=== PATIENT | female | born 1995 | race Caucasian/White ===

== ENCOUNTER 2017-06-21 10:22 | Emergency (ER) | payer OTHER, SELFPAY ==
[2017-06-21] MEDS ORDERED: Ondansetron HCl/PF 4 MG/2 ML Vial ONE (12:32)
== END 2017-06-21 13:26 | disposition home or self-care (01) ==
LOC: ERS 10:22
DX: J11.1 Influenza due to unidentified influenza virus with other respiratory manifestations (principal); F41.9 Anxiety disorder, unspecified; F32.9 Major depressive disorder, single episode, unspecified
CPT/HCPCS: 96361; 96374; 99283; J2405

== ENCOUNTER 2018-01-29 20:39 | Emergency (ER) | payer SELFPAY ==
[2018-01-29 21:21] LABS: Bilirubin Negative (Negative); Blood, Urine Negative (Negative); Clarity CLEAR (Clear); Glucose, Urine (Dipstick) Negative (Negative); Leukocyte Negative (Negative); Nitrite Negative (Negative); Protein, Urine (Dipstick) Negative (Neg-Trace); Specific Gravity, Urine 1.006 (1.002-1.036); Urobilinogen 0.2 mg/dL (0.2-1.0)
[2018-01-29 22:00] LABS: #Basophils 0.1 thou/uL (0.0-0.2); #Eosinphils 0.3 thou/uL (0.0-0.7); #Lymphocytes 2.7 thou/uL (1.20-3.40); #Monocytes 0.5 thou/uL (0.11-0.59); #Neutrophils 4.7 thou/uL (1.40-6.50); %Basophils 0.8 % (0.0-1.0); %Eosinophils 3.3 % (0.0-10.0); %Lymphocytes 32.5 % (21.0-51.0); %Monocytes 6.3 % (0.0-10.0); %Neutrophils 57.1 % (42.0-75.0); Hemoglobin 12.7 g/dL (12.0-16.0); Mean Corpuscular HGB CONC 33.4 g/dL (32.0-36.0); Mean Corpuscular Hemoglobin 27.1 pg (27.0-31.0); Mean Corpuscular Volume 81.3 fL (78.0-98.0); Mean Platelet Volume 8.4 fL (7.4-10.4); Platelet Count 256 thou/uL (130-400); RBC Distribution Width 16.3 % (11.5-14.5); Red Blood Cell (RBC) Count 4.68 mill/uL (4.20-5.40); White Blood Cell (WBC) Count 8.3 thou/uL (4.8-10.8)
[2018-01-29 22:14] LABS: Anion Gap 12 mmol/L (10-20); BUN (Urea Nitrogen) 7 mg/dL (7.0-18.7); Calc. Creatinine Clearance 0 mL/min (70-130); Calcium 9.5 mg/dL (7.8-10.44); Carbon Dioxide 25 mmol/L (22-29); Chloride 105 mmol/L (98-107); Estimated GFR-MDRD Greater than 90; Glucose 82 mg/dL (70-105); Potassium 3.6 mmol/L (3.5-5.1); Sodium 138 mmol/L (136-145)
--- NOTE | 2018-01-29 22:42 | ULT ---
TRANSVAGINAL PELVIC ULTRASOUND: HISTORY: Bleeding. COMPARISON: None. TECHNIQUE: Real-time, vo-scale, color, and spectral analysis of the pelvis was performed, transvaginal approac h only. FINDINGS: A right ovarian corpus luteum is present. There is a small left ovarian cyst. There is active flow to both ovaries. There is trace free fluid. No intrauterine . Endometrial thickness is 1.4 cm. The uterus measures 7.3 x 3.5 x 5.2 cm. IMPRESSION: 1. No intrauterine . 2. Likely hemorrhage within the endometrial cavity. POS: [facility]
[2018-02-01 00:07] LABS: Chlamydia by PCR Not Detected (NotDetected); GC by PCR Not Detected (NotDetected)
== END 2018-01-29 22:30 | disposition home or self-care (01) ==
LOC: ERS 20:39
DX: O20.8 Other hemorrhage in early pregnancy (principal); O99.341 Other mental disorders complicating pregnancy, first trimester; F41.9 Anxiety disorder, unspecified; F32.9 Major depressive disorder, single episode, unspecified; Z3A.01 Less than 8 weeks gestation of pregnancy
CPT/HCPCS: 36415; 76856; 80048; 81003; 84702; 85025; 86900; 86901; 87480; 87491; 87510; 87591; 87660

== ENCOUNTER 2018-02-26 15:20 | Emergency (ER) | payer SELFPAY ==
[2018-02-26 15:56] LABS: Bilirubin Negative (Negative); Blood, Urine Negative (Negative); Clarity CLEAR (Clear); Glucose, Urine (Dipstick) Negative (Negative); Leukocyte Trace (Negative); Nitrite Negative (Negative); Protein, Urine (Dipstick) Negative (Neg-Trace); Specific Gravity, Urine 1.008 (1.002-1.036); Urobilinogen 0.2 mg/dL (0.2-1.0); pH, Urine 6.5 (5.0-9.0)
[2018-02-26 15:58] LABS: Bacteria/HPF None Seen HPF (None Seen); Hyaline Casts/LPF 0-3 HYALINE CAST LPF (0-3 Hyaline); Pathc Cast-AUWi Flag 0.43 (0-2.49); Squamous Epithelial 0-3 HPF (0-3); WBC/HPF 0-3 HPF (0-3)
[2018-02-26 16:28] LABS: #Basophils 0.1 thou/uL (0.0-0.2); #Eosinphils 0.2 thou/uL (0.0-0.7); #Lymphocytes 2.2 thou/uL (1.20-3.40); #Monocytes 0.5 thou/uL (0.11-0.59); #Neutrophils 3.5 thou/uL (1.40-6.50); %Basophils 0.9 % (0.0-1.0); %Eosinophils 3.1 % (0.0-10.0); %Lymphocytes 33.8 % (21.0-51.0); %Neutrophils 54.3 % (42.0-75.0); Hemoglobin 12.5 g/dL (12.0-16.0); Mean Corpuscular Hemoglobin 27.9 pg (27.0-31.0); Mean Corpuscular Volume 84.5 fL (78.0-98.0); Mean Platelet Volume 8.5 fL (7.4-10.4); Platelet Count 243 thou/uL (130-400); RBC Distribution Width 15.4 % (11.5-14.5); White Blood Cell (WBC) Count 6.5 thou/uL (4.8-10.8)
[2018-02-26 16:33] LABS: BHCG - Serum POSITIVE (NEGATIVE); Pregs Control Background? CLEAR/WHITE (CLR/WHITE); Pregs Control Bar Appear? YES (CONTROL BAR)
[2018-02-26 16:48] LABS: ALT (SGPT) 13 U/L (8-55); AST (SGOT) 21 U/L (5-34); Albumin 4.1 g/dL (3.5-5.0); Alkaline Phosphatase 45 U/L (40-150); Anion Gap 12 mmol/L (10-20); BUN (Urea Nitrogen) 6 mg/dL (7.0-18.7); Bilirubin, Total 0.2 mg/dL (0.2-1.2); Calc. Creatinine Clearance 0 mL/min (70-130); Calcium 9.2 mg/dL (7.8-10.44); Carbon Dioxide 22 mmol/L (22-29); Chloride 107 mmol/L (98-107); Estimated GFR-MDRD Greater than 90; Globulin 3.4 g/dL (2.4-3.5); Glucose 87 mg/dL (70-105); Potassium 3.5 mmol/L (3.5-5.1); Protein, Total 7.5 g/dL (6.0-8.3); Sodium 137 mmol/L (136-145)
--- NOTE | 2018-02-26 18:45 | ULT ---
PELVIC ULTRASOUND: History: Positive test. Pelvic cramping and spotting. FINDINGS: Real-time imaging of the pelvis was performed transabdominally as well as an endovaginal probe. It sh ows a uterus which is 7.9 cm in length. The endometrium is mildly thickened and heterogeneous in appe arance. No intrauterine gestational sac is identified. Complex cyst is seen involving the right adnexa measuring 1.6 cm. This does not have the appearance o f an ectopic. The left ovary is normal in appearance. Doppler evaluation with spectral analysis: Normal flow is shown to the adnexa. IMPRESSION: No definite signs of an intrauterine ectopic . There is a complex cyst involving the right o vary. I strongly favor this being a cyst rather than an ectopic. Follow up ultrasound would be recomm ended based on clinical findings. POS: [facility]
[2018-03-01 01:40] LABS: Chlamydia by PCR Not Detected (NotDetected); GC by PCR Not Detected (NotDetected)
== END 2018-02-26 17:59 | disposition home or self-care (01) ==
LOC: ERS 15:20
DX: O20.0 Threatened abortion (principal); O99.611 Diseases of the digestive system complicating pregnancy, first trimester; O99.341 Other mental disorders complicating pregnancy, first trimester; F41.9 Anxiety disorder, unspecified; F32.9 Major depressive disorder, single episode, unspecified; O99.011 Anemia complicating pregnancy, first trimester
CPT/HCPCS: 36415; 76856; 80053; 81003; 81015; 84702; 84703; 85025; 86900; 86901; 87480; 87491; 87510; 87591; 87660

== ENCOUNTER 2018-02-28 07:30 | Emergency (ER) | payer SELFPAY ==
--- NOTE | 2018-02-28 10:41 | ULT ---
ULTRASOUND PELVIC TRANSVAGINAL: HISTORY: Evaluate for ectopic . Pelvic pain. COMPARISON: Ultrasound 02/26/2018 and 01/29/2018. FINDINGS: The uterus measures 6.7 x 3.7 x 5.3 cm. Endometrial thickness 2.4 cm. The right ovary measures 3 x 3 x 3.2 cm with a 2.1 cm cyst. There is some peripheral hypervascular flow in the cyst. The left ov arlyn measures 2.3 x 1.3 x 1.1 cm with adequate vascular flow. Small volume free fluid. IMPRESSION: Findings suggesting corpus luteal cyst in the right ovary. No evidence of intrauterine . T he differential could also include a failed ectopic , although there is no definite evidence besides the mildly elevated HCG. Recommend continued HCG followup. Within 6 weeks if this has not decreased to 0, and endometrial thickness continued to be enlarged, MRI would be recommended to look for molar abnormality. POS: [facility]
== END 2018-02-28 10:33 | disposition home or self-care (01) ==
LOC: ERS 07:30
DX: O20.0 Threatened abortion (principal); O99.340 Other mental disorders complicating pregnancy, unspecified trimester; F41.9 Anxiety disorder, unspecified; F32.9 Major depressive disorder, single episode, unspecified; O99.019 Anemia complicating pregnancy, unspecified trimester; Z79.899 Other long term (current) drug therapy
CPT/HCPCS: 36415; 76856; 84702

== ENCOUNTER 2018-08-02 04:12 | Day surgery (SDC) | payer OTHER ==
[2018-08-02 04:22] VITALS: BP 95/59; TEMP 98.3; BMI 21.4
--- NOTE | 2018-08-02 05:35 | PDOC.LDHP ---
Labor and Delivery H&P Chief complaint: decreased movement HPI: Jenny is a 22 yo reported at 22.2wks by 1T sono presenting with decreased FM She says that yesterday she did not feel her baby move all day, tried interventions like laying in a dark room and attempting kick counts, drinking cola, etc. She denies any VB, VD, LOF, or vaginal pain. reports vaginal pruritis and cottage cheese like discharge. she reports her has been complicated by consistent nausea and poor PO intake Due date: 12/04/18 Dating criteria: first trimester ultrasound Grav: 2 Para: 0 OB History Details: 1T SAB, hyperemsis gravidarum Current complications: none Abnormal US findings: No Past Medical History: endometriosis Current medications: pre-tran vitamins, other (famotidine, diclegis) Previous surgical history: none Allergies/Adverse Reactions: Allergies Allergy/AdvReac Type Severity Reaction Status Date / Time Latex, Natural Rubber Allergy Mild Verified 08/02/18 04:17 Social history: none - Physical Exam Vital signs reviewed and normal: yes General: NAD Heart: RRR Lungs: CTAB Abdomen: NTTP Extremeties: no edema FHT: variability present (accels, no decels, baseline 140. reactive strip) - Assessment decreased movement with reactive strip concern for BV/diann - Plan -: - reactive strip, feeling baby move currently - VP3, UA, UCx pending - DC with abx pending results. Addendum - Attending - Attending Attestation Date/Time: 08/02/18 0703 I personally evaluated the patient and discussed the management with Dr. Perez. I agree with the History, Examination, Assessment and Plan documented above.
[2018-08-02 05:38] LABS: Bilirubin Negative (Negative); Blood, Urine Negative (Negative); Clarity CLEAR (Clear); Glucose, Urine (Dipstick) Negative (Negative); Leukocyte Negative (Negative); Nitrite Negative (Negative); Protein, Urine (Dipstick) Negative (Neg-Trace); Specific Gravity, Urine 1.011 (1.002-1.036); Urobilinogen 0.2 mg/dL (0.2-1.0)
[2018-08-02 05:40] LABS: Bacteria/HPF None Seen HPF (None Seen); Hyaline Casts/LPF 0-3 HYALINE CAST LPF (0-3 Hyaline); RBC/HPF 0-3 HPF (0-3); Squamous Epithelial 0-3 HPF (0-3); WBC/HPF 0-3 HPF (0-3)
--- NOTE | 2018-08-02 06:38 | PDOC.EVN ---
Event Note - Event Note Event Note: FHTs +. UA is unremarkable. DC home with precautions. F/u with Dr. Montes at next scheduled appt.
== END 2018-08-02 06:40 | disposition home or self-care (01) ==
LOC: L&D/OP 04:12
PROVIDERS: ATTEND Obstetrics & Gynecology
DX: O36.8120 Decreased fetal movements, second trimester, not applicable or unspecified (principal); Z3A.22 22 weeks gestation of pregnancy; Z91.040 Latex allergy status; Z79.899 Other long term (current) drug therapy
CPT/HCPCS: 81001; 87480; 87510; 87660; 99284

== ENCOUNTER 2018-09-25 00:19 | Day surgery (SDC) | payer OTHER ==
[2018-09-25] MEDS ORDERED: Ondansetron HCl/PF 4 MG in Sodium Chloride 0.9% 50 ML IVPB PRN ×2 (00:49→01:12)
[2018-09-25] MEDS ORDERED: Ondansetron PF 4 MG/2 ML Vial SLOW IVP PRN (00:55)
[2018-09-25 00:57] VITALS: BMI 22.8
[2018-09-25] MEDS ORDERED: Lactated Ringer's 1,000 ML IV SCH (01:00)
[2018-09-25] MEDS ORDERED: Sodium Chloride 0.9% (PF) 10 ML VIAL FS PRN (01:15)
[2018-09-25] MEDS ORDERED: Dextrose 5%-Lactated Ringers 1,000 ML IV SCH (01:15)
[2018-09-25] MEDS ORDERED: Pantoprazole 40 MG VIAL IVP SCH (01:15)
--- NOTE | 2018-09-25 01:15 | PDOC.LDHP ---
Labor and Delivery H&P Chief complaint: other (N/V) HPI: 22 y/o G1 at 30w0d, patient of Dr. Montes at [facility], presents with N/V and blood in vomit. Patient reports she has hyperemesis gravidarum and has thrown up at least daily since first trimester. She occasionally has red specs in her vomit but today her vomit had more brown blood in it than usual. She was seen at [facility] and given fluids but she was unhappy with her care and came here. Denies VB, LOF, ctx, UTI symptoms or decreased FM. ROS neg for HEENT, CV, pulm, GI, , neuro, psych, skin, musculoskeletal, or constitutional symptoms other than mentioned above. OB History Details: First Current complications: other (anemia) Past Medical History: Hx eating disorder Hx PTSD Hx PMDD Current medications: other (zofran, melatonin) Previous surgical history: none Allergies/Adverse Reactions: Allergies Allergy/AdvReac Type Severity Reaction Status Date / Time Latex, Natural Rubber Allergy Mild Verified 08/02/18 04:17 Social history: none - Physical Exam Vital signs reviewed and normal: yes General: NAD, resting Lungs: nonlabored breathing Abdomen: gravid Extremeties: no edema FHT: category 1 (140s, mod variability, + accels, no decels) [place] contractions every: irritability - Assessment 22 y/o G1 at 30w0d with hyperemesis gravidarum and small amount of blood in vomit, likely from chronic vomiting. Does not sounds like significant active bleeding at this time. status reassuring with reactive NST. - Plan -: Feeling better after IV hydration, IV zofran, IV protonix. D/c home with precautions. Advised to keep all appointments.
[2018-09-25 01:30] LABS: Hemoglobin 9.9 g/dL (12.0-16.0); Mean Corpuscular HGB CONC 33.8 g/dL (32.0-36.0); Mean Corpuscular Hemoglobin 26.4 pg (27.0-31.0); Mean Corpuscular Volume 78.2 fL (78.0-98.0); Mean Platelet Volume 8.4 fL (7.4-10.4); Platelet Count 254 thou/uL (130-400); RBC Distribution Width 13.4 % (11.5-14.5); Red Blood Cell (RBC) Count 3.74 mill/uL (4.20-5.40); White Blood Cell (WBC) Count 8.5 thou/uL (4.8-10.8)
[2018-09-25 01:33] LABS: Bilirubin Small (Negative); Blood, Urine Negative (Negative); Clarity CLOUDY (Clear); Glucose, Urine (Dipstick) Negative (Negative); Leukocyte Moderate (Negative); Nitrite Negative (Negative); Protein, Urine (Dipstick) Trace mg/dL (Neg-Trace); Specific Gravity, Urine 1.022 (1.002-1.036); pH, Urine 5.5 (5.0-9.0)
[2018-09-25 01:36] LABS: Bacteria/HPF 1+ HPF (None Seen); WBC/HPF 21-50 HPF (0-3)
[2018-09-25 01:37] LABS: Pathc Cast-AUWi Flag 7.75 (0-2.49)
[2018-09-25 01:44] LABS: Hyaline Casts/LPF NONE SEEN LPF (0-3 Hyaline); Manual Microscopic Reviewed? No Path Casts Seen
[2018-09-25 01:45] LABS: Urine Culture Reflex No No
== END 2018-09-25 03:34 | disposition home or self-care (01) ==
LOC: L&D/OP 00:19
PROVIDERS: ATTEND Obstetrics & Gynecology
DX: O21.0 Mild hyperemesis gravidarum (principal); O99.613 Diseases of the digestive system complicating pregnancy, third trimester; K92.0 Hematemesis; O99.013 Anemia complicating pregnancy, third trimester; O99.343 Other mental disorders complicating pregnancy, third trimester; F32.81 Premenstrual dysphoric disorder; F43.10 Post-traumatic stress disorder, unspecified; Z79.899 Other long term (current) drug therapy; Z91.040 Latex allergy status; Z3A.30 30 weeks gestation of pregnancy
CPT/HCPCS: 36415; 81001; 85027; 99282; C9113; J2405

== ENCOUNTER 2018-10-06 17:32 | Day surgery (SDC) | payer OTHER ==
[2018-10-06] MEDS ORDERED: Ondansetron PF 4 MG/2 ML Vial IVP PRN (18:20)
[2018-10-06] MEDS ORDERED: Lactated Ringer's 1,000 ML IV SCH ×2 (18:30)
[2018-10-06 18:39] LABS: #Eosinphils 0.1 thou/uL (0.0-0.7); #Lymphocytes 1.4 thou/uL (1.20-3.40); #Monocytes 0.6 thou/uL (0.11-0.59); #Neutrophils 5.3 thou/uL (1.40-6.50); %Basophils 0.2 % (0.0-1.0); %Eosinophils 1.1 % (0.0-10.0); %Lymphocytes 19.4 % (21.0-51.0); %Monocytes 7.6 % (0.0-10.0); %Neutrophils 71.6 % (42.0-75.0); Mean Corpuscular HGB CONC 34.9 g/dL (32.0-36.0); Mean Corpuscular Hemoglobin 26.9 pg (27.0-31.0); Mean Platelet Volume 7.8 fL (7.4-10.4); Platelet Count 218 thou/uL (130-400); RBC Distribution Width 14.1 % (11.5-14.5); Red Blood Cell (RBC) Count 3.33 mill/uL (4.20-5.40); White Blood Cell (WBC) Count 7.4 thou/uL (4.8-10.8)
[2018-10-06 19:09] LABS: Anion Gap 11 mmol/L (10-20); BUN (Urea Nitrogen) 4 mg/dL (7.0-18.7); Calc. Creatinine Clearance 0 mL/min (70-130); Calcium 8.8 mg/dL (7.8-10.44); Carbon Dioxide 23 mmol/L (22-29); Chloride 103 mmol/L (98-107); Estimated GFR-MDRD Greater than 90; Glucose 70 mg/dL (70-105); Potassium 3.5 mmol/L (3.5-5.1); Sodium 133 mmol/L (136-145)
[2018-10-06 19:50] VITALS: BMI 22.8
[2018-10-06 20:12] LABS: Bilirubin Negative (Negative); Blood, Urine Negative (Negative); Clarity CLOUDY (Clear); Glucose, Urine (Dipstick) Negative (Negative); Leukocyte Moderate (Negative); Nitrite Negative (Negative); Protein, Urine (Dipstick) Trace mg/dL (Neg-Trace); Specific Gravity, Urine 1.017 (1.002-1.036); pH, Urine 6.5 (5.0-9.0)
[2018-10-06 20:14] LABS: Bacteria/HPF None Seen HPF (None Seen)
[2018-10-06 20:15] LABS: Hyaline Casts/LPF 0-3 HYALINE CAST LPF (0-3 Hyaline); Pathc Cast-AUWi Flag 2.99 (0-2.49)
--- NOTE | 2018-10-06 21:14 | PRG ---
DATE OF SERVICE: 10/06/2018 PRESENTING COMPLAINT: Nausea and vomiting at 32-33 weeks gestation. HISTORY OF PRESENT ILLNESS: The patient is a 22-year-old 1, para 0, who sees Mariella Montes at [facility]. She reports she has hyperemesis gravidarum and has had multiple visits to the [facility] emergency room. She has had several presentations to this labor delivery when she has been dissatisfied with her care. She presents today complaining of emesis last night with a small amount of blood. She denies vomiting this afternoon, but states she feels that she is dehydrated. The patient reports that she is moving to [place] tomorrow. [facility] HISTORY: As noted, there is no antepartum record available. She reports an active fetus. PAST MEDICAL HISTORY: Significant for an eating disorder, PTSD, PMDD. SURGICAL HISTORY: Denies. MEDICATIONS: 1. Zofran. 2. Melatonin. ALLERGIES: LATEX. SOCIAL HISTORY: Denies tobacco, alcohol, or drug abuse. FAMILY HISTORY: Noncontributory. REVIEW OF SYSTEMS: Noncontributory. PHYSICAL EXAMINATION: GENERAL: White female resting comfortably. VITAL SIGNS: Pulse 92, respirations 18, blood pressure 105/62, temperature 98.5. HEENT: Within normal limits. LUNGS: Clear to auscultation bilaterally. HEART: Regular rate and rhythm. ABDOMEN: Soft and nontender, 31 cm fundal height, FHTs 140s. No CVA tenderness noted. EXTREMITIES: No clubbing, cyanosis, or edema. PELVIC: Deferred. heart rate tracing was carried out for greater than 1 hour, which revealed a category 1 heart rate tracing, positive accelerations, no decels, no contractions noted. LABORATORY DATA: The patient was noted to have hematocrit of 25%. Hematocrit 2 weeks ago was 29.3, today it is 25.7, mildly microcytic. No elevated white count. Sodium of 133, potassium of 3.5, creatinine of 0.56 and BUN of 4. Urinalysis revealed trace ketones and was otherwise unremarkable for a clean-catch. Over the course of 2 hours, the patient received 2 L of IV RL and Zofran. She states she felt much better and desired to be discharged home. She states that she is moving to [place] and has an appointment already with an [facility] who specializes in hyperemesis gravidarum. The patient was given ER precautions. Job ID: [id number]
== END 2018-10-06 21:00 | disposition home or self-care (01) ==
LOC: L&D/OP 17:32
PROVIDERS: ATTEND Obstetrics & Gynecology
DX: O21.2 Late vomiting of pregnancy (principal); O99.343 Other mental disorders complicating pregnancy, third trimester; F50.9 Eating disorder, unspecified; F43.10 Post-traumatic stress disorder, unspecified; F32.81 Premenstrual dysphoric disorder; Z3A.32 32 weeks gestation of pregnancy; Z79.899 Other long term (current) drug therapy; Z91.040 Latex allergy status
CPT/HCPCS: 36415; 80048; 81001; 85025; 96360; 96361; 96375; 99283; J2405

== ENCOUNTER 2019-02-26 20:42 | Emergency (ER) | payer OTHER ==
[2019-02-26 21:58] LABS: Bilirubin Negative (Negative); Blood, Urine Negative (Negative); Clarity Clear (Clear); Glucose, Urine (Dipstick) Normal (Negative); Leukocyte Negative Leu/uL (Negative); Nitrite Negative (Negative); Protein, Urine (Dipstick) 10 mg/dL (Neg-Trace)
[2019-02-26 22:00] LABS: Pregnancy Test - Urine (BHCG) Negative (Negative); Pregu Control Background? CLEAR/WHITE (CLR/WHITE); Pregu Control Bar Appear? YES (CONTROL BAR); Specific Gravity 1.025 (1.002-1.036)
[2019-02-28 00:51] LABS: Chlamydia by PCR Not Detected (NotDetected); GC by PCR Not Detected (NotDetected)
== END 2019-02-26 22:12 | disposition home or self-care (01) ==
LOC: ERS 20:42
DX: B34.9 Viral infection, unspecified (principal); R30.0 Dysuria; F41.9 Anxiety disorder, unspecified; F32.9 Major depressive disorder, single episode, unspecified
CPT/HCPCS: 51701; 81003; 81025; 87480; 87491; 87510; 87591; 87660; A4353